=== PATIENT | female | born 1990 | race Caucasian/White ===

== ENCOUNTER 2018-05-29 19:13 | Emergency (ER) | payer MEDICAID, OTHER ==
[~2018-05-29] VITALS: Ht 160 cm; Wt 70.0 kg
--- NOTE | 2018-05-29 19:26 | NUR ---
Urine sent to lab ([id number])
--- NOTE | 2018-05-29 19:30 | NUR ---
PRESENTS VIA [facility] D/T SI W/ PLAN. REPORTS SHE HAS BEEN DEPRESSED SINCE SHE BECAME W/ HER 18 MO DAUGHTER. REPORTS DEPRESSION HAS BEEN MADE WORSE LATELY BY REPORTED POOR SOCIAL SUPPORT. DENIES MEDICAL HX/ILLICITS/ VSS
[2018-05-29 20:09] LABS: BASOPHILS # (AUTO) 0.03 x10^3/uL (0-0.1); BASOPHILS % (AUTO) 1 % (0-1); EOSINOPHILS # (AUTO) 0.16 x10^3/uL (0-0.4); EOSINOPHILS % (AUTO) 3 % (1-7); LYMPHOCYTES # (AUTO) 2.51 x10^3/uL (1-3.4); LYMPHOCYTES % (AUTO) 43 % (22-44); MD NO; MEAN CORPUSCULAR HEMOGLOBIN 31.4 pg (27.0-34.8); MEAN CORPUSCULAR HGB CONC 33.8 g/dL (32.4-35.8); MEAN CORPUSCULAR VOLUME 92.8 fL (80-100); MEAN PLATELET VOLUME 8.5 fL (7.4-10.4); MONOCYTES # (AUTO) 0.41 x10^3/uL (0.2-0.8); MONOCYTES % (AUTO) 7 % (2-9); NEUTROPHILS # (AUTO) 2.72 x10^3/uL (1.8-6.8); NEUTROPHILS % (AUTO) 47 % (42-75); PLATELET COUNT 209 x10^3/uL (130-400); RED BLOOD COUNT 3.99 x10^6/uL (3.82-5.3); RED CELL DISTRIBUTION WIDTH 12.6 % (9.6-15.2)
[2018-05-29 20:15] LABS: ALBUMIN 3.5 g/dL (3.4-5.0); ANION GAP 6 mmol/L (5-15); CALCIUM 8.1 mg/dL (8.5-10.1); CHLORIDE 114 mmol/L (98-107); CREATININE 0.83 mg/dL (0.55-1.02)
[2018-05-29 20:16] LABS: ACETAMINOPHEN < 2 mcg/mL (10-30); SALICYLATE LEVEL < 1.7 mg/dL (2.8-20.0)
[2018-05-29] MEDS ORDERED: BUPR150T13 PO (20:42)
--- NOTE | 2018-05-29 21:10 | NUR ---
Report from Allan WAITE, pt's mother at bedside, pt calm, cooperative. Per report pts has shown aggressive behavior during visiting pt, security was involoved, report pt is currently in lobby.
--- NOTE | 2018-05-29 22:07 | NUR ---
Pt gave RN consent to update in lobby on plan...legal hold, etc. calm, cooperative, apologetic for behavior earlier. requesting keys from pts mother to go pick children up, mother states pt has been drinking and will not be allowed to pick children up. Mother and father at bedside with patient, will discuss further plan with in lobby after time with pt.
--- NOTE | 2018-05-29 22:41 | NUR ---
Per lab inital ua was sent with empty tubes, will attempt to get another ua from pt.
--- NOTE | 2018-05-29 23:17 | NUR ---
Pt given water per request, pt aware of need for ua still. Cup in room, sitter aware as well.
--- NOTE | 2018-05-29 23:58 | NUR ---
Pt to restroom for UA
[2018-05-30 00:09] LABS: HCG UR SG 1.018 (1.003-1.030); MICROSCOPIC AUTO
[2018-05-30 00:10] LABS: CULTURE INDICATED? NO
[2018-05-30 00:19] LABS: AMPHETAMINE SCREEN, URINE Negative (Negative); BARBITURATE SCREEN, URINE Negative (Negative); BENZODIAZEPINE SCREEN, URINE Negative (Negative); CANNABINOID SCREEN, URINE Negative (Negative); COCAINE SCREEN, URINE Negative (Negative); METHADONE SCREEN, URINE Negative (Negative); OPIATE SCREEN, URINE Negative (Negative)
[2018-05-30] MEDS ORDERED: DOCUSATE 100 MG CAPSULE PO PRN (01:30)
[2018-05-30] MEDS ORDERED: ACETAMINOPHEN 325 MG TABLET PO PRN (01:30)
[2018-05-30] MEDS ORDERED: ONDANSETRON ODT 4 MG PO PRN (01:30)
[2018-05-30] MEDS ORDERED: DIPHENHYDRAMINE 25 MG CAPSULE PO PRN (01:30)
[2018-05-30 01:39] LABS: FREE T4 (FREE THYROXINE) 1.27 ng/dL (0.76-1.46); THYROID STIMULATING HORMONE 1.5 mIU/L (0.358-3.740)
--- NOTE | 2018-05-30 01:51 | NUR ---
Hospitalist in for eval.
--- NOTE | 2018-05-30 01:56 | NUR ---
tp: packet faxed to [facility]
--- NOTE | 2018-05-30 02:22 | NUR ---
received report from MARIANN Adams
--- NOTE | 2018-05-30 03:59 | NUR ---
patient sleeping, respiration unlabored. Sitter at the door.
--- NOTE | 2018-05-30 07:02 | NUR ---
report to Abram[facility]
--- NOTE | 2018-05-30 07:06 | NUR ---
ann [facility] [phone]
--- NOTE | 2018-05-30 07:23 | NUR ---
patient tired in bed. states she is sad adn has been since she delivered in last year, and believes its mostly post pardem depression. patient states she has a gun and considers using it. sitter at door. vss. breakfast ordered. denies pain.
[2018-05-30] MEDS ORDERED: BUPROPION SR 150 MG TABLET PO SCH (09:00)
--- NOTE | 2018-05-30 09:19 | NUR ---
REFUSED BREAKFAST. TOOK MORNING MEDICAITON. IN BED. TEARFUL WANTS TO GO HOME. LISTENED.
--- NOTE | 2018-05-30 11:54 | NUR ---
patient's just left after an hour visit. they were calm and communicative having quiet interactions. just left. patient is refusing all food. she told she will eat only a protein shake. I told him if he wishes he can bring her one. will monitor.
--- NOTE | 2018-05-30 12:14 | NUR ---
JESUS WILL BE HERE IN ABOUT AN HOUR
--- NOTE | 2018-05-30 14:01 | NUR ---
patient in bed resting at this time. will order dinner tray for her.
--- NOTE | 2018-05-30 15:25 | NUR ---
MANAS RN: PAM SAMANIEGO SLEEPING ON BED. NAD NOTED. SKIN PWD. RESP EVEN AND EQAUL. GARAGE DOORS DOWN IN ROOM. BELONGINGS IN LOCKED LOCKER. SITTER OUTSIDE OF ROOM.
--- NOTE | 2018-05-30 16:06 | NUR ---
ORDERED DINNER TRAY. PATIENT RESTING.
--- NOTE | 2018-05-30 17:10 | NUR ---
GOT PATIENT UP TO CALL PARENTS WHO CALLED WHILE SHE WAS ASLEEP. PATIENT TALKING TO THEM WITH SITTER WATCHING. GOT HER TRAY, REFUSED. TALKED TO WHEN HE CALLED ABOUT WHAT SHE WILL EAT, STATES ONLY A PROTEIN SHAKE. RELAYED THIS TO . FAMILY IS FRUSTRATED WITH HER SITUATION. STATES HE IS UPSET BECAUSE SHE IS MANIPULATIVE/STUBBURN AND HAS DUAL PERSONALITIES ACCORDING TO HIM AT HOME. AIDET. TOLD HIM THAT MAYBE MENTAL HEALTH CONSULT WILL HELP THEM GET THE HELP THEY NEED. HE IS DOUBTFUL. PARENTS CALLED AND THEY ARE ADAMENT TO TALK TO HER, GOT HER UP TO TALK TO THEM ON PHONE. SHE IS COOPERATIVE AND CALM BUT NOT EATING.
--- NOTE | 2018-05-30 17:50 | NUR ---
[facility] CALLED - [place] - AND THEY ARE ACCEPTING PATIENT AT 9PM TODAY UNDER DR BOSWELL. SASCHA, , JUST ARRIVED WITH PROTEIN MEIR. HE IS IN ROOM. ASKED IF HE WOULD BE SO KIND TO TELL FATHER IN LAW, WHICH HE SAID HE WAS MORE THAN HAPPY TO DO AND IN FREQUENT CONTACT WITH THEM. 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 PATIENT IN BED, WITH , TALKING CALMLY. SITTER PRESENT.
--- NOTE | 2018-05-30 18:01 | NUR ---
HECTOR CAICEDO [phone]
--- NOTE | 2018-05-30 18:26 | NUR ---
SPOKE WITH RAPHAEL AT [facility]. [facility] NOTIFIED OF ESTIMATED ETA [id number]
--- NOTE | 2018-05-30 18:36 | NUR ---
PATIENT RESTING QUIETLY AT THIS TIME. [facility] TO [facility] SURRENDER CALCULATOR AT 20:30
--- NOTE | 2018-05-30 19:00 | NUR ---
REPORT RECEIVED FROM WILLIAMS WAITE.
[2018-05-30 19:19] VITALS: BP 108/62
--- NOTE | 2018-05-30 19:21 | NUR ---
PT RESTING AT THIS TIME. PT DENIES SI/HI AT THIS TIME. SITTER MONITORING FROM [facility]. ROOM REMAINS SECURE.
--- NOTE | 2018-05-30 20:28 | NUR ---
PT RESTING AT THIS TIME. FAMILY AT BEDSIDE. SITTER MONITORING FROM [facility]. ROOM REMAINS SECURE.
--- NOTE | 2018-05-30 21:05 | NUR ---
PT RANSFERED TO [facility] BY EMS AT THIS TIME. REPORT GIVEN TO EMS. PT'S AOX4. RESPS EVEN AND UNLABORED. PT AMB TO EMS WITH STEADY GAIT.
== END 2018-05-30 21:05 ==
LOC: ED 20:01 → UNDOADMOB 21:52 → EDIP 21:52 → ED 05-30 21:05
DX: F33.2 Major depressive disorder, recurrent severe without psychotic features (principal)
CPT/HCPCS: 36415; 80048; 80307; 80329; 81001; 81025; 82040; 84439; 84443; 85025; 99285; G0480